=== PATIENT | male | born 2000 | race Asian ===

== ENCOUNTER 2019-03-01 15:29 | Emergency (ER) | payer OTHER ==
--- NOTE | 2019-03-01 15:57 | ER Document Report ---
ED Medical Screen (RME) - General Chief Complaint: Toe Injury Stated Complaint: TOE PAIN Time Seen by Provider: 03/01/19 15:52 Primary Care Provider: FITO RIZVI MD [Primary Care Provider] - Follow up as needed TRAVEL OUTSIDE OF THE [place] IN LAST 30 DAYS: No - HPI Notes: 03/01/19 15:55 Patient is a 18-year-old male who presents to the emergency department complaining of right toenail infection and swelling over the past 2 to 3 months. Patient states that a few weeks after his symptoms started he did drop something on his toe, but no recent injury. Patient states that he had to have ingrown toenail removed from his left foot. He has noticed some discharge from his toe, redness, and swelling. Denies RUSSELL, fever, neck pain, URI, CP, SOB, Abd pain, dysuria, back pain, or rash. I have treated and performed a rapid initial assessment of this patient. A comprehensive ED assessment and evaluation of the patient, analysis of test results and completion of medical decision making process will be conducted by additional ED providers. PHYSICAL EXAMINATION: GENERAL: Well-appearing, well-nourished and in no acute distress. A&Ox4. Answers questions appropriately. LUNGS: Breath sounds clear to auscultation bilaterally and equal. No wheezes rales or rhonchi. HEART: Regular rate and rhythm without murmurs, rubs, gallops. Rt great toe: + swelling, erythema, tenderness to the b/l toe/nail border. N/V intact distal. - Related Data Allergies/Adverse Reactions: No Known Allergies Allergy (Verified 03/01/19 15:35) Past Medical History - Social History Frequency of alcohol use: None Drug Abuse: None Renal/ Medical History: Denies: Hx Peritoneal Dialysis Physical Exam - Vital signs Vitals: Temp Pulse Resp BP Pulse Ox 99 F 81 18 132/71 H 100 03/01/19 15:32 03/01/19 15:32 03/01/19 15:32 03/01/19 15:32 03/01/19 15:32 Course - Vital Signs Vital signs: Temp Pulse Resp BP Pulse Ox 99 F 81 18 132/71 H 100 03/01/19 15:32 03/01/19 15:32 03/01/19 15:32 03/01/19 15:32 03/01/19 15:32 Doctor's Discharge - Discharge Referrals: FITO RIZVI MD [Primary Care Provider] - Follow up as needed
[2019-03-01] MEDS ORDERED: IBUPROFEN 800 MG TABLET PO ONE (15:58)
--- NOTE | 2019-03-01 16:21 | RADIOLOGY REPORT (SQ) ---
EXAM DESCRIPTION: FOOT RIGHT COMPLETE COMPLETED DATE/TIME: 03/01/2019 4:08 pm REASON FOR STUDY: rt great toe pain COMPARISON: None. NUMBER OF VIEWS: Three views. TECHNIQUE: AP, lateral and oblique radiographic images acquired of the right foot. LIMITATIONS: None. FINDINGS: MINERALIZATION: Normal. BONES: No acute fracture or dislocation. No worrisome bone lesions. JOINTS: No effusions. SOFT TISSUES: Diffuse distal great toe soft tissue swelling. No foreign body. OTHER: No other significant finding. IMPRESSION: Diffuse distal great toe soft tissue swelling. No fracture of the distal phalanx, right great toe TECHNICAL DOCUMENTATION: JOB ID: [id number] [employer]- All Rights Reserved Reading location - IP/workstation name: [email or web address]
[2019-03-01] MEDS ORDERED: LIDOCAINE 1% INJ-PF (10 MG/ML) 30 ML SDV INJ ONE ×2 (18:20→18:45)
--- NOTE | 2019-03-01 18:48 | ER Document Report ---
ED General - General Chief Complaint: Toe Injury Stated Complaint: TOE PAIN Time Seen by Provider: 03/01/19 15:52 Primary Care Provider: FITO RIZVI MD [NO LOCAL MD] - Follow up in 3-5 days DENG QUINTERO DPM [ACTIVE STAFF] - Follow up in 3-5 days Notes: Patient is a 18-year-old male that presents to the emergency department for chief complaint of toe pain. Patient states he is been dealing with a paronyc hia of his right great toe for approximately 2 months, he did drop a pallet on it at work about 2 months ago as well, and is only gotten worse since then, he is then noticed over the past few weeks that his left great toe was also infected. He has not been in to see anybody to have this evaluated yet. He does have some pain associated with it, denies any fevers, chills, night sweats. He has not noticed any streaking up his leg or redness to his foot. He has noticed some drainage from both his left and right great toes. He reports being up-to-date with his immunizations, including tetanus. Past Medical History: Denies chronic medical conditions Past Surgical History: Denies surgical history Social History: Denies tobacco, alcohol or drug use. Family History: Reviewed and noncontributory for presenting illness Allergies: Reviewed, see documented allergy list. REVIEW OF SYSTEMS: Other than noted above, the 12 point review of systems was reviewed with the patient and were negative, all pertinent findings are included in the HPI. PHYSICAL EXAMINATION: Vital signs reviewed, nursing noted reviewed. GENERAL: Well-appearing, well-nourished and in no acute distress. HEAD: Atraumatic, normocephalic. EYES: Eyes appear normal, extraocular movements intact, sclera anicteric, conjunctiva are normal. ENT: nares patent, oropharynx clear without exudates. Moist mucous membranes. NECK: Normal range of motion, supple without lymphadenopathy LUNGS: Breath sounds clear to auscultation bilaterally and equal. No wheezes rales or rhonchi. HEART: Regular rate and rhythm without murmurs ABDOMEN: Soft, nontender, normoactive bowel sounds. No rebound, guarding, or rigidity. No masses appreciated. EXTREMITIES: The right great toe has medial and lateral paronychia, is rather si gnificant, with redundant tissue growing over the nail on both sides, there is purulent drainage noted as well. The left great toe has lateral paronychia noted, with some purulent drainage noted. There is mild tenderness with palpation to both of these toes. There is no lymphangitis, or cellulitis noted to the feet. There is good cap refill bilaterally. The rest of the extremity exam is grossly unremarkable. NEUROLOGICAL: No focal neurological deficits. Moves all extremities spontaneously Motor and sensory grossly intact on exam. PSYCH: Normal mood, normal affect. SKIN: Warm, Dry, normal turgor, no rashes or lesions noted on exposed skin TRAVEL OUTSIDE OF THE [place] IN LAST 30 DAYS: No - Related Data Allergies/Adverse Reactions: No Known Allergies Allergy (Verified 03/01/19 15:35) Past Medical History - Social History Smoking Status: Never Smoker Frequency of alcohol use: None Drug Abuse: None Family History: Reviewed & Not Pertinent Patient has suicidal ideation: No Patient has homicidal ideation: No Renal/ Medical History: Denies: Hx Peritoneal Dialysis Physical Exam - Vital signs Vitals: Temp Pulse Resp BP Pulse Ox 99 F 81 18 132/71 H 100 03/01/19 15:32 03/01/19 15:32 03/01/19 15:32 03/01/19 15:32 03/01/19 15:32 Course - Re-evaluation Re-evalutation: Patient seen and examined vital signs reviewed. Patient was evaluated and treated as appropriate for the patient's presenting symptoms and complaint, with consideration of any critical or life threatening conditions that may be associated with their obtained history and exam as noted above. Patient was treated with bilateral partial nail removal, and given a dose of Bactrim and Keflex The patient was re-evaluated and was stable and improved Evaluation was most consistent with bilateral paronychia of the great toes, patient advised to follow-up with podiatry, given prescriptions for Bactrim and Keflex for 7 days. Plan of care was discussed with the patient at this point, after careful consideration I feel that that patient can be discharged from the emergency department, the patient was educated treatments and reasons to return to the emergency department based on their presumed diagnosis as noted above, they were advised to followup with a primary care physician in 2-3 days. Patient was agreeable to plan of care. *Note is created using voice recognition software and may contain spelling, syntax or grammatical errors. Foot X-Ray 03/01/19 15:55 IMPRESSION: Diffuse distal great toe soft tissue swelling. No fracture of the distal phalanx, right great toe - Vital Signs Vital signs: Temp Pulse Resp BP Pulse Ox 98.4 F 70 16 132/84 H 98 03/01/19 20:27 03/01/19 20:27 03/01/19 20:27 03/01/19 20:27 03/01/19 20:27 Procedures - Nail Trephanation/Removal Left Great toe Nail Trepanation/Removal Location: Lateral partial nail removal Sterile Dressing Applied: Yes Notes: Patient's toe was prepped with ChloraPrep and alcohol, it was anesthetized with a digital block, the lateral aspect of the great toenail was lifted, and that portion of the nail was cut with scissors, and removed, patient tolerated this well, sterile dressing applied. Right Great toe Nail Trepanation/Removal Location: Medial and lateral partial nail removal Sterile Dressing Applied: Yes Notes: Patient's toe was prepped with ChloraPrep and alcohol, digital block was performed with 1% lidocaine, total of 2 mL's, after good anesthesia, the nail was lifted on both the medial and lateral aspects, the excess nail and tissue was excised with scissors, and scalpel, there was some mild bleeding, which with direct pressure was stopped, patient tolerated procedure well, sterile dressing applied. Discharge - Discharge Clinical Impression: Paronychia of toe of both feet Condition: Stable Disposition: HOME, SELF-CARE Instructions: Paronychia (OM) Additional Instructions: Please follow-up with podiatry and complete the entire course of antibiotics prescribed. If you have worsening symptoms or pain do not hesitate to return to the emergency department sooner. Prescriptions: RX: Cephalexin Monohydrate [Keflex 500 mg Capsule] 500 mg PO TID 7 Days #21 capsule Sulfamethoxazole/Trimethoprim [Bactrim Ds Tablet] 1 each PO BID #14 tablet Forms: Return to Work Referrals: FITO RIZVI MD [NO LOCAL MD] - Follow up in 3-5 days DENG QUINTERO DPM [ACTIVE STAFF] - Follow up in 3-5 days
[2019-03-01] MEDS ORDERED: SULFAMETHOXAZOLE/TRIMETHOPRIM 800-160 MG TABLET PO ONE (19:30)
[2019-03-01] MEDS ORDERED: CEPHALEXIN 500 MG CAPSULE PO ONE (19:30)
[2019-03-01 20:27] VITALS: BP 132/84
== END 2019-03-01 20:36 | disposition home or self-care (01) ==
LOC: ER 15:29
DX: L03.032 Cellulitis of left toe (principal); L03.031 Cellulitis of right toe
CPT/HCPCS: 99283; 73630; 11750; J3490